=== PATIENT | female | born 1995 ===

== ENCOUNTER → 2021-05-24 11:05 | Outpatient (CLI) | payer BC, MEDICAID, SELFPAY ==
--- NOTE | ~2021-05-24 | US_ITS ---
. EXAMINATION: US OB /maternal detail DATE: 05/24/2021 11:42 INDICATION: anatomic survey. TECHNIQUE: Real-time ultrasound of the pelvis was performed. COMPARISON: None. FINDINGS: There is a single living fetus in breech presentation. The placenta is posterior. heart rate i s 151 beats per minute (bpm). The amniotic fluid volume is subjectively normal. The following biometric data were obtained: Biparietal diameter (BPD): 4.7 cm; head circumference (HC): 18.0 cm; abdominal circumference (AC): 16 .0 cm; femur length (FL): 3.2 cm. These measurements are concordant. Estimated weight is 360 g +/- 54 g, which correlates with the 51st percentile when 10/08/21 is u sed as estimated date of delivery. As single measurements, these parameters are each equal to the following estimated gestational ages w ith ranges of +/- 2 standard deviations: BPD: 20 weeks 1 days (18 weeks 3 days - 21 weeks 6 days). HC: 20 weeks 3 days (19 weeks 0 days - 21 weeks 6 days). AC: 21 weeks 1 days (19 weeks 0 days - 23 weeks 1 days). FL: 19 weeks 6 days (18 weeks 1 days - 21 weeks 5 days). estimated gestational age based solely on measurements from this exam is 20 weeks 3 days +/- 1 weeks 3 days. The cerebral ventricles, cerebellum, cisterna magna, nuchal fold, lip, and visualized portions of the spine are normal. The heart is normal. The diaphragm, stomach, kidneys, and bladder are normal. Ther e are two umbilical arteries to yield a 3-vessel cord. The cord insertion is normal. IMPRESSION: 1. Single living fetus in breech presentation. 2. Estimated weight is 360 g +/- 54 g, which correlates with the 51st percentile when 10/08/21 is used as estimated date of delivery. 3. Normal anatomic survey. Reviewed, dictated and finalized at location A. IMPRESSION: 1. Single living fetus in breech presentation. 2. Estimated weight is 360 g +/- 54 g, which correlates with the 51st pe rcentile when 10/08/21 is used as estimated date of delivery. 3. Normal anatomic survey.
== END ==
PROVIDERS: Visit Provider Obstetrics & Gynecology
DX: Z34.82 Encounter for supervision of other normal pregnancy, second trimester (principal)
CPT/HCPCS: 76805